=== PATIENT | female | born 1945 | race Caucasian/White ===

== ENCOUNTER 2023-09-04 14:25 | Emergency (ER) | payer MEDICARE, BC ==
[~2023-09-04] VITALS: Ht 157.5 cm; Wt 92.5 kg
[2023-09-04] MEDS ORDERED: LOSARTAN POTAS100 MG PO (14:53)
[2023-09-04] MEDS ORDERED: DIURIL (14:54)
[2023-09-04] MEDS ORDERED: IBU600 MG PO (14:55)
[2023-09-04] MEDS ORDERED: GLUCOSAMINE PO (14:55)
[2023-09-04] MEDS ORDERED: CEPHALEXIN500 M1 PO (16:02)
[2023-09-04] MEDS ORDERED: Cephalexin 500 MG CAP PO ONE (16:15)
[2023-09-04 18:25] VITALS: BP 143/87
[2023-09-11] MEDS ORDERED: CARVEDILOL3.125 MG PO (16:39)
[2023-09-11] MEDS ORDERED: LOW DOSE ASPIRI81 M1 PO (16:40)
[2023-09-11] MEDS ORDERED: TOPCARE OMEPRAZ20 MG PO (16:43)
[2023-09-11] MEDS ORDERED: TYLENOL325 M1 PO (16:44)
[2023-09-17] MEDS ORDERED: DAPTOMYCIN500 MG IV (16:25)
== END 2023-09-04 18:25 | disposition home or self-care (01) ==
LOC: ED 14:25
DX: S92.401B Displaced unspecified fracture of right great toe, initial encounter for open fracture (principal); S91.312A Laceration without foreign body, left foot, initial encounter; W20.8XXA Other cause of strike by thrown, projected or falling object, initial encounter
CPT/HCPCS: 90715

== ENCOUNTER → 2023-09-12 | Outpatient (RCR) | payer MEDICARE, BC ==
[2023-09-11 16:01] VITALS: BP 164/92
[~2023-09-12] VITALS: Ht 157.5 cm; Wt 92.5 kg
[~2023-09-12] MED LIST: CARVEDILOL3.125 MG PO; CEPHALEXIN500 M1 PO; DAPTOMYCIN IV SCH; DAPTOMYCIN500 MG IV; DIURIL; GLUCOSAMINE PO; IBU600 MG PO; LOSARTAN POTAS100 MG PO; LOW DOSE ASPIRI81 M1 PO; NS IV SCH; TOPCARE OMEPRAZ20 MG PO; TYLENOL325 M1 PO
[2023-09-12 15:59] VITALS: BP 161/96
== END ==
LOC: AMSURD
DX: M86.171 Other acute osteomyelitis, right ankle and foot (principal)
CPT/HCPCS: J0878

== ENCOUNTER → 2023-09-24 | Outpatient (CLI) | payer MEDICARE, BC ==
[~2023-09-24] MED LIST changes: -DAPTOMYCIN IV SCH; -NS IV SCH
[2023-09-24 16:39] LABS: BASO # 0.01 K/mm3 (0.02-0.10); EOS # 0.22 K/mm3 (0.04-0.40); EOS % 3.7 % (1.0-5.0); HEMATOCRIT 41.4 % (37.0-47.0); HEMOGLOBIN 13.1 g/dL (12.5-16.0); LYMPH# 2.38 K/mm3 (1.50-4.00); MEAN CELL VOLUME 88 fl (78-100); MEAN CORPUSCULAR HEMOGLOBIN 28 pg (27-31); MEAN CORPUSCULAR HGB CONC 32 g/dL (33-37); MEAN PLATELET VOLUME 9.2 fl (7.4-10.4); MONO # 0.59 K/mm3 (0.20-0.80); NEU # 2.81 K/mm3 (1.40-6.50); PLATELET COUNT 273 K/mm3 (130-400); RED BLOOD COUNT 4.73 M/mm3 (4.10-5.30); RED CELL DISTRIBUTION WIDTH 13.6 % (11.5-14.5)
[2023-09-24 16:42] LABS: ALBUMIN 4.2 g/dL (3.4-4.8)
[2023-09-24 16:44] LABS: CALCIUM 9.6 mg/dL (8.3-10.5)
[2023-09-24 16:45] LABS: TOTAL PROTEIN 6.9 g/dL (6.2-8.1)
[2023-09-24 16:47] LABS: TOTAL BILIRUBIN 0.3 mg/dL (0.2-1.2)
== END ==
LOC: LAB 15:41
DX: M86.8X7 Other osteomyelitis, ankle and foot (principal)

== ENCOUNTER → 2023-10-01 | Outpatient (CLI) | payer MEDICARE, BC ==
[2023-10-01 16:49] LABS: HEMATOCRIT 39.7 % (37.0-47.0); HEMOGLOBIN 12.4 g/dL (12.5-16.0); MEAN PLATELET VOLUME 9.5 fl (7.4-10.4); RED BLOOD COUNT 4.49 M/mm3 (4.10-5.30); RED CELL DISTRIBUTION WIDTH 14.1 % (11.5-14.5); WHITE BLOOD COUNT 6.7 K/mm3 (4.8-10.8)
[2023-10-01 16:57] LABS: CALCIUM 9.2 mg/dL (8.3-10.5)
[2023-10-01 16:58] LABS: TOTAL PROTEIN 6.6 g/dL (6.2-8.1)
[2023-10-01 17:00] LABS: TOTAL BILIRUBIN 0.3 mg/dL (0.2-1.2)
== END ==
LOC: LAB 15:52
DX: S92.314 Nondisplaced fracture of first metatarsal bone, right foot (principal); X58.XXXA Exposure to other specified factors, initial encounter

== ENCOUNTER → 2023-10-08 | Outpatient (CLI) | payer MEDICARE, BC ==
[2023-10-08 17:09] LABS: BASO # 0.02 K/mm3 (0.02-0.10); EOS # 0.44 K/mm3 (0.04-0.40); HEMOGLOBIN 13.3 g/dL (12.5-16.0); LYMPH# 2.43 K/mm3 (1.50-4.00); MEAN CELL VOLUME 87 fl (78-100); MEAN CORPUSCULAR HEMOGLOBIN 28 pg (27-31); MEAN CORPUSCULAR HGB CONC 32 g/dL (33-37); MEAN PLATELET VOLUME 9.3 fl (7.4-10.4); MONO # 0.85 K/mm3 (0.20-0.80); PLATELET COUNT 275 K/mm3 (130-400); RED BLOOD COUNT 4.82 M/mm3 (4.10-5.30); WHITE BLOOD COUNT 7.3 K/mm3 (4.8-10.8)
[2023-10-08 17:19] LABS: ALBUMIN 4.3 g/dL (3.4-4.8)
[2023-10-08 17:20] LABS: CALCIUM 9.9 mg/dL (8.3-10.5)
[2023-10-08 17:22] LABS: TOTAL PROTEIN 7.2 g/dL (6.2-8.1)
[2023-10-08 17:23] LABS: TOTAL BILIRUBIN 0.3 mg/dL (0.2-1.2)
== END ==
LOC: LAB 13:04
DX: S92.314 Nondisplaced fracture of first metatarsal bone, right foot (principal)

== ENCOUNTER → 2023-10-13 | Outpatient (RCR) | payer MEDICARE, BC ==
[2023-09-13 16:02] VITALS: BP 161/94
--- NOTE | 2023-09-13 17:16 | NUR ---
PT WAS SE[facility] [place] TODAY. THEY CHANGED THE DRESSING ON HER RT FIRST TOE TODAY. NOW NEEDS DRESSING CHANGED EVERY OTHER DAY - STARTING ON 09/15/23.
[2023-09-14 15:48] VITALS: BP 124/83
[2023-09-15 15:56] VITALS: BP 217/106
[2023-09-15 16:23] VITALS: BP 190/110
[2023-09-15 16:48] VITALS: BP 169/95
--- NOTE | 2023-09-15 16:48 | NUR ---
Pt ambulates to room 201. Denies need for WC. Surgical shoe to R foot with dressing in place to R great toe. No drainage noted to external dressing. L foot bandaid in place to top of foot. Pt reports that she has already changed that one, "you don't need to touch it." Pt sits on EOB, initial BP elevated, 217/106. Pt reports high BP, just changed meds, has "white coat syndrome." Instruct to lie back, relax, will retake upon completing abx and drsg change. Pt tells this RN that she doesn't think she can lay back, she needs to see the wound and get pictures to show ortho. Reassure pt that we will her requests will be honored but to relax for now to get BP WNL. Pt complies. Abx given, PICC flushed, brisk blood return noted. Dressing removed from R foot. No drainage noted, sutures intact. Pt concerned about area on anterior (pad) side of R great toe. Says it was pale like there was no blood flow. Note brisk cap refill, <3sec. Photo taken, pt agrees area is improved since previous dressing change. Anterior side of toe open under toenail with sutures intact around perimeter of nail. No drainage noted. Wound bed that is visible is dark red. Pt concerned about white area at tip of great toe. After looking at picture from prior drsg change, area is unchanged and pt is not sure if Dr. Roger, ortho sx, placed any hardware or devices in toe during procedure. Area does not appear to be bone. Redressed wound per orders. Rechecked BP 190/110. Pt does not want to be seen, says she takes PM BP med at 1700. Agrees to sit in ER waiting x 15 minutes. Recheck BP 169/95. Pt ambulates from facility.
[2023-09-16 15:56] VITALS: BP 166/104
--- NOTE | 2023-09-16 15:58 | NUR ---
PT AMBULATED INTO TRIAGE ROOM. PT SAT IN CHAIR FOR DAPTO INFUSION. INITIAL BLOOD PRESSURE READING WAS 171/102, PT STATES HER BP IS ALWAYS HIGH WHEN GOING TO THE HOSPITAL/DOCTOR. AFTER ANTIBIOTIC WAS GIVEN BP RETAKEN WHICH WAS 166/104. PT STABLE, ABLE TO AMBULATE BACK OUT TO VEHICLE.
[2023-09-17 16:00] VITALS: BP 181/93
--- NOTE | 2023-09-17 16:32 | NUR ---
PT ARRIVED AMBULATORY FOR OP IV ANTIBIOTICS. RT PICC FLUSHES EASILY AND HAS BRISK BLOOD RETURN, DRSG DRY AND INTACT. BLOOD DRAWN FOR LABS TODAY. MED GIVEN ORDERED. VSS EXCEPT FOR BP CONTINUES TO BE HIGH - 181/93. PT HAS APPT WITH HER DOCTOR TOMORROW. PT REFUSES TO HAVE TOE DRESSING CHANGED TODAY SINCE SHE IS GOING TO THE DOCTOR TOMORROW. REMINDED HER THAT IT IS SUPPOSED TO BE CHANGED EVERY OTHER DAY. SHE VERBALIZED UNDERSTANDING BUT STILL INSISTS THAT WE NOT CHANGE HER DRESSING TODAY. LEFT HOSPITAL AMBULATORY.
[2023-09-18 15:52] VITALS: BP 143/84
--- NOTE | 2023-09-18 16:24 | NUR ---
PT'S RT GREAT TOE DRESSING WAS CHANGED TODAY AT HER ORTHO APPT. WILL CHANGE DRSG IN 48 HOURS. DRSG CURRENTLY DRY AND INTACT.
[2023-09-19 16:09] VITALS: BP 201/96
--- NOTE | 2023-09-19 16:40 | NUR ---
PT ARRIVED IN FOR OP IV ANTIBIOTICS TODAY. STATES SHE SAW WOUND CARE AT [facility] TODAY AND WAS TOLD TO STAY OFF HER FOOT MUCH POSSIBLE. THEY SAID SHE COULD CHANGE THE RT GREAT TOE DRESSING DAILY AT HOME, AND THAT THEY WOULD DECIDE NEXT WEEK IF TOE NEEDS AMPUTATION. BP WAS HIGH AGAIN TODAY. PT GOING HOME TO TAKE HER 2ND DOSE OF BP MED.
[2023-09-20 15:50] VITALS: BP 177/87
[2023-09-21 16:06] VITALS: BP 185/89
[2023-09-23 15:38] VITALS: BP 177/118
[2023-09-23 15:40] VITALS: BP 161/89
[2023-09-25 15:49] VITALS: BP 161/97
[2023-09-26 15:43] VITALS: BP 161/86
[2023-09-27 16:02] VITALS: BP 162/89
[2023-09-28 15:59] VITALS: BP 162/84
[2023-09-29 16:03] VITALS: BP 164/97
[2023-09-30 16:50] VITALS: BP 196/99
--- NOTE | 2023-09-30 16:58 | NUR ---
PATIENT AMBULATED TO ROOM 5. PATIENT'S BLOOD PRESSURE WAS HIGH, BUT PATIENT STATES THIS IS HER NORM WHEN COMING TO THE HOSPITAL. PICC LINE FLUSHED WELL AND HAD BLOOD RETURN. IV DAPTO ADMINISTERED. PT THEN AMBULATED BACK OUT TO VEHICLE WITHOUT DIFFICULTY.
[2023-10-01 15:52] VITALS: BP 173/93
[2023-10-02 15:54] VITALS: BP 167/91
[2023-10-03 16:08] VITALS: BP 207/104
--- NOTE | 2023-10-03 16:19 | NUR ---
Pt's BP continues to be elevated >200/100. Pt insists that she will not make any changes in her BP med until she is finished with this toe infection. She also received news at her dr bennett today that they are giving it one more week to decide whether or not to amputate her toe.
[2023-10-04 16:08] VITALS: BP 172/99
[2023-10-05 15:59] VITALS: BP 184/98
[2023-10-06 16:11] VITALS: BP 169/99
[2023-10-07 15:45] VITALS: BP 152/85
[2023-10-08 17:12] VITALS: BP 193/98
[2023-10-09 16:42] VITALS: BP 170/100
--- NOTE | 2023-10-09 17:00 | NUR ---
PT'S BP WAS 176/124 ON ARRIVAL TODAY. ASYMPTOMATIC. REFUSES TO CHANGE MEDICATIONS WITH ALL THAT IS GOING ON WITH HER RIGHT NOW. STATES SHE IS ALMOST OUT OF THE BP MED STARTED WHILE SHE WAS IN THE HOSPITAL, AND WILL PROBABLY JUSST START TAKING THE ONE SHE WAS TAKING PREVIOUSLY. DISCUSSED GETTING IN TO SEE HER PCP TO ADJUST HER MEDS QUIRINO.
[2023-10-10 15:47] VITALS: BP 153/89
[2023-10-11 15:58] VITALS: BP 149/93
[2023-10-12 16:10] VITALS: BP 140/77
[~2023-10-13] VITALS: Ht 157.5 cm; Wt 92.5 kg
[~2023-10-13] MED LIST changes: +DAPTOMYCIN IV SCH; +NS IV SCH
== END | disposition home or self-care (01) ==
LOC: AMSURD
DX: M86.8X7 Other osteomyelitis, ankle and foot (principal); S91.109D Unspecified open wound of unspecified toe(s) without damage to nail, subsequent encounter; X58.XXXD Exposure to other specified factors, subsequent encounter
CPT/HCPCS: J0878

== ENCOUNTER → 2023-10-16 | Outpatient (CLI) | payer MEDICARE, BC ==
[~2023-10-16] MED LIST changes: -DAPTOMYCIN IV SCH; -NS IV SCH
[2023-10-16 16:32] LABS: BASO # 0.02 K/mm3 (0.02-0.10); EOS # 0.35 K/mm3 (0.04-0.40); EOS % 4.9 % (1.0-5.0); HEMATOCRIT 38.7 % (37.0-47.0); HEMOGLOBIN 12.2 g/dL (12.5-16.0); LYMPH# 2.33 K/mm3 (1.50-4.00); MEAN CELL VOLUME 88 fl (78-100); MEAN CORPUSCULAR HEMOGLOBIN 28 pg (27-31); MEAN CORPUSCULAR HGB CONC 32 g/dL (33-37); MEAN PLATELET VOLUME 9.3 fl (7.4-10.4); MONO # 0.73 K/mm3 (0.20-0.80); NEU # 3.64 K/mm3 (1.40-6.50); PLATELET COUNT 269 K/mm3 (130-400); RED BLOOD COUNT 4.39 M/mm3 (4.10-5.30); RED CELL DISTRIBUTION WIDTH 13.8 % (11.5-14.5); WHITE BLOOD COUNT 7.1 K/mm3 (4.8-10.8)
[2023-10-17 18:37] LABS: CALCIUM 9.4 mg/dL (8.3-10.5)
[2023-10-17 18:38] LABS: TOTAL PROTEIN 6.6 g/dL (6.2-8.1)
[2023-10-17 18:40] LABS: TOTAL BILIRUBIN 0.3 mg/dL (0.2-1.2)
== END ==
LOC: LAB 15:50
DX: S92.314 Nondisplaced fracture of first metatarsal bone, right foot (principal)

== ENCOUNTER 2023-10-17 15:31 | Outpatient (RCR) | payer MEDICARE, BC ==
[2023-09-15 16:48] VITALS: BP_SYST 169
[2023-10-14 15:46] VITALS: BP 127/80
--- NOTE | 2023-10-15 16:10 | NUR ---
RN ADMINISTERED ANTIBIOTIC TO PT VIA RADAMES PICC LINE, SINGLE LUMEN. LINE FLUSHED WELL. PT WAS INSTRUCTED TO RETURN FOR A LAB DRAW TOMORROW THE CHEMISTRY MACHINE IS DOWN TODAY. PT VERBALIZED UNDERSTANDING.
[2023-10-15 16:19] VITALS: BP 153/92
[2023-10-16 16:03] VITALS: BP 143/82
[~2023-10-17] VITALS: Ht 157.5 cm; Wt 92.5 kg
[~2023-10-17 15:31] MED LIST changes: +DAPTOMYCIN IV SCH; +NS IV SCH
[2023-10-17 15:51] VITALS: BP 142/85
--- NOTE | 2023-10-17 16:27 | NUR ---
LABS WERE DRAWN ON 10/15 RATHER THAN ON 10/14 DUE TO CHEMISTRY ANALYZER BEING DOWN ON 10/14. CHEMISTRY ANALYZER WENT DOWN AGAIN AFTER THE LABS WERE DRAWN ON 10/15, THEREFORE RESULTS ARE NOT IN COMPUTER AT THIS TIME.
== END 2023-11-12 | disposition home or self-care (01) ==
LOC: AMSURD
DX: S91.109A Unspecified open wound of unspecified toe(s) without damage to nail, initial encounter (principal); M86.8X7 Other osteomyelitis, ankle and foot
CPT/HCPCS: J0878